=== PATIENT | female | born 2000 | race American Indian/Alaskan Native ===

== ENCOUNTER 2020-03-31 22:02 | Emergency (ER) | payer SELFPAY ==
[2020-03-31 22:38] VITALS: BP 134/78
--- NOTE | 2020-03-31 22:48 | Emergency Department Report ---
Chief Complaint: Earache Stated Complaint: RIGHT EAR PAIN Time Seen by Provider: 03/31/20 22:39 - HPI History of Present Illness: Patient is a 19-year-old female who presents emergency room with complaints of right lower dental pain that began a couple weeks ago. She states that the tooth fell out on that side a few weeks ago. She states it has been approximately 2 years since she has seen a dentist. She states that it is referring pain to her right ear. She denies any fever, nausea, vomiting, diarrhea, chills, facial swelling, difficulty swallowing, difficulty breathing, ear drainage, hearing changes. She denies any past medical history. No allergies to medications. Vitals are stable On exam: There is a missing right lower back molar, consistent with dental carry, no edema or induration of the gumline, no facial edema, no necrosis, no trismus, no muffled voice, uvula is midline, no uvular edema or deviation, no tongue elevation, no submandibular swelling, normal TMs and canals bilaterally, no mastoid tenderness palpation bilaterally Patient is presenting with dental carry with missing tooth No signs of infected dental carry, dental abscess, facial cellulitis, otitis media or externa, significant gingivitis, Ludwigs at this time Advised patient May alternate 600 mg of ibuprofen and then 650 mg of Tylenol every 6-8 hours as needed for pain. Gargle with warm salt water 3-5 times a day. Please practice good oral hygiene. Follow-up with a dentist. It is very importantly follow-up. Return to emergency room for any new or worsening symptoms or any signs of infection as discussed Patient given the appropriate resources Discussed strict return precautions Medical screening examination performed and there is no threat to life or limb at this time - Exam Vital Signs: Vital Signs 03/31/20 22:35 Temperature 98.0 F Pulse Rate 87 Respiratory 19 Rate Blood Pressure 134/78 O2 Sat by Pulse 100 Oximetry MSE screening note: Focused history and physical exam performed. Due to findings the following was ordered: ED Disposition for MSE Clinical Impression: Dental caries Disposition: Z- MED SCREENING EXAM-LEFT Is pt being admited?: No Does the pt Need Aspirin: No Condition: Stable Additional Instructions: May alternate 600 mg of ibuprofen and then 650 mg of Tylenol every 6-8 hours as needed for pain. Gargle with warm salt water 3-5 times a day. Please practice good oral hygiene. Follow-up with a dentist. It is very importantly follow-up. Return to emergency room for any new or worsening symptoms or any signs of infection as discussed Referrals: [facility] [Outside] - 2-3 Days [facility] [Outside] - 2-3 Days Time of Disposition: 22:47 Print Language: FRENCH
== END 2020-03-31 23:13 | disposition left against medical advice (07) ==
LOC: ED 22:02
DX: K02.9 Dental caries, unspecified (principal); Z53.21 Procedure and treatment not carried out due to patient leaving prior to being seen by health care provider